=== PATIENT | female | born 1985 | race Caucasian/White ===

== ENCOUNTER 2023-09-21 18:36 | Emergency (ER) | payer BC ==
[~2023-09-21] VITALS: Ht 162.5 cm; Wt 52.2 kg
[~2023-09-21 18:36] MED LIST: NKHM
== END 2023-09-21 21:56 | disposition home or self-care (01) ==
LOC: ED 18:36
DX: M79.671 Pain in right foot (principal); Z88.0 Allergy status to penicillin